=== PATIENT | male | born 1995 | race Caucasian/White ===

== ENCOUNTER 2019-12-21 08:46 | Emergency (ER) | payer OTHER ==
[~2019-12-21] VITALS: Ht 172.7 cm; Wt 136.1 kg
[2019-12-21] MEDS ORDERED: FLEXERIL PO (09:11)
[2019-12-21] MEDS ORDERED: TRAMADOL 50 MG50 MG PO (09:11)
[2019-12-21 09:12] VITALS: BP 145/85
== END 2019-12-21 09:12 | disposition home or self-care (01) ==
LOC: M.ERS 08:46
DX: S16.1XXA Strain of muscle, fascia and tendon at neck level, initial encounter (principal); S39.012A Strain of muscle, fascia and tendon of lower back, initial encounter; V89.2XXA Person injured in unspecified motor-vehicle accident, traffic, initial encounter; Y93.89 Activity, other specified; Y92.89 Other specified places as the place of occurrence of the external cause; Y99.8 Other external cause status

== ENCOUNTER 2020-04-05 16:23 | Emergency (ER) | payer OTHER ==
[~2020-04-05] VITALS: Ht 172.7 cm; Wt 131.5 kg
[~2020-04-05 16:23] MED LIST: FLEXERIL PO; TRAMADOL 50 MG50 MG PO
== END 2020-04-05 17:11 | disposition home or self-care (01) ==
LOC: M.ERS 16:23
DX: J30.9 Allergic rhinitis, unspecified (principal)